=== PATIENT | female | born 1960 | race Caucasian/White ===

== ENCOUNTER 2020-06-26 15:59 | Emergency (ER) | payer OTHER ==
[~2020-06-26] VITALS: Ht 170.2 cm; Wt 76.8 kg
--- NOTE | 2020-06-26 16:18 | PHYS DOC ---
General Adult EDM: Chief Complaint: NEURO SYMPTOMS/DEFICITS HPI: HPI: Patient is a 59-year-old female coming in for blurred vision and right face paintingling. 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 Has completely resolved now. Symptoms started about 5 hours prior to arrival. Patient states she starts with the blurred vision versus like a partial blurring of her visual field. But is unable says 1 side of the other. States only in the right eye. States she been having the symptoms for the past 2 weeks. One time 2 weeks ago the last time about 5 days ago. Patient states those episodes only lasted about 15 to 20 minutes and were not associated any other symptoms. Patient stating that she had the head pain today starting about 30 minutes after the medication started. Patient was instantly seen by her driver courier for an eye exam was routinely scheduled 1 week after the first incident, 1 week ago. Had a normal exam at that time. Patient states she had a dilated exam with pressure checks. (QUIQUE JIN MD) Review of Systems: Review of Systems: All other systems within normal limits except for as noted in the HPI (QUIQUE JIN MD) Physical Exam: PE: Constitutional: Well developed, well nourished, no acute distress, non-toxic appearance. [] HENT: Normocephalic, atraumatic, bilateral external ears normal, nose normal. No temporal tenderness to palpation [] Eyes: PERRLA, conjunctiva normal, no discharge. Extraocular is intact, unremarkable funduscopic exam. Bilateral intraocular pressures less than 20 [] Neck: No rigidity, supple, no stridor. [] Cardiovascular: Regular rate and rhythm, brisk cap refill [] Lungs & Thorax: Non labored symmetric respirations, no tachypnea or respiratory distress [] Abdomen: Soft, nondistended. Skin: Warm, dry, no erythema, no rash. No rash or vesicular lesion on right side of head. [] Back: Unremarkable Extremities: No deformities, range of motion grossly intact, no lower extremity edema [] Neurologic: Alert and oriented X 3, no focal deficits noted. No cranial nerve defects, no sensory defects. [] Psychologic: Affect normal, judgement normal, mood normal. [] (QUIQUE JIN MD) Current Patient Data: Labs: Laboratory Tests Test 06/26/20 16:09 Glucose (Fingerstick) 102 mg/dL (70-99) H (QUIQUE JIN MD) EKG: EKG: Sinus rhythm, heart rate 90 bpm, normal axis, no ST elevation depression, no ectopy, normal intervals. T waves unremarkable. [] (QUIQUE JIN MD) Radiology/Procedures: Radiology/Procedures: CT HEAD/BRAIN WO History: Reason: right eye vision changes / Spl. Instructions: / History: Comparison: None. Technique: Noncontrast CT imaging was performed of the head. Exposure: One or more of the following individualized dose reduction techniques were utilized for this examination: 1. Automated exposure control 2. Adjustment of the mA and/or kV according to patient size 3. Use of iterative reconstruction technique. Findings: No intracranial hemorrhage. No mass effect. No hydrocephalus. Extra-axial spaces are unremarkable. Imaged orbits are unremarkable. Imaged paranasal sinuses and mastoid air cells are clear. No acute calvarial fracture. Impression: 1. No acute intracranial abnormality. [] (QUIQUE JIN MD) Radiology/Procedures: Findings: No intracranial hemorrhage. No mass effect. No hydrocephalus. Extra-axial spaces are unremarkable. Imaged orbits are unremarkable. Imaged paranasal sinuses and mastoid air cells are clear. No acute calvarial fracture. Impression: 1. No acute intracranial abnormality. Electronically signed by: Jaycob Reyes DO (06/26/2020 4:48 PM) [id number] (JOSIANE SHULTZ MD) Heart Score: C/O Chest Pain: No Risk Factors: Risk Factors: DM, Current or recent (<one month) smoker, HTN, HLP, family history of CAD, obesity. Risk Scores: Score 0 - 3: 2.5% MACE over next 6 weeks - Discharge Home Score 4 - 6: 20.3% MACE over next 6 weeks - Admit for Clinical Observation Score 7 - 10: 72.7% MACE over next 6 weeks - Early Invasive Strategies (QUIQUE JIN MD) Course & Med Decision Making: Course & Med Decision Making Pertinent Labs and Imaging studies reviewed. (See chart for details) Patient signed out to Dr. Shultz at shift change pending D-dimer CT angio. [] (QUIQUE JIN MD) Course & Med Decision Making Patient's care was transferred to wi at checkout. EKG and troponin not concerning. CT noted above and not concerning. Laboratory analysis not concerning. No focal neurologic deficits. NIH of 0. On reassessment patient was asymptomatic and felt safe to discharge home. Vital signs not concerning outside of slightly elevated blood pressure. Discussed all findings with patient and advised calling primary care physician f irst thing in the morning to discuss ED visit and set up a follow-up as soon as she can to discuss need for further evaluation, treatment and/or imaging such as MRI. Gave strict return precautions to the ED. Patient grateful, verbalized understanding and agreed with plan of discharge. (JOSIANE SHULTZ MD) Dragon Disclaimer: Dragon Disclaimer: This electronic medical record was generated, in whole or in part, using a voice recognition dictation system. (QUIQUE JIN MD) Departure Departure: Impression: Primary Impression: Blurred vision, bilateral Disposition: 01 DC HOME SELF CARE/HOMELESS Condition: GOOD Referrals: PCP,NO (PCP) Patient Instructions: Eye - Blurred Vision Additional Instructions: Please read the attached information. Your CT scan of the head, laboratory a nalysis and ECG/troponin which looks at your heart were all reassuring today. Your vital signs are notable for mild elevation of blood pressure but otherwise normal. However, this work-up is a snapshot of what is going on today so the best course of action would be to call your primary care physician first thing in the morning to update on your ED visit, symptoms and get a follow-up appointment with them as soon as possible to discuss need for further evaluation, treatment and/or imaging such as MRI. Please come back to the emergency department immediately with any new or concerning symptoms as discussed. QUIQUE JIN MD Jun 26, 2020 16:18 JOSIANE SHULTZ MD Jun 26, 2020 19:11
--- NOTE | 2020-06-26 16:30 | EKG ---
[address] [address] Test Date: 2020-06-26 Test Time: 16:20:52 Pat Name: NITZA BETANCUR Department: Room: Gender: F Receiver Stocker: CHRISTINE : 1960 Requested By: QUIQUE JIN Order Number: [id number] Reading MD: Measurements Intervals [place] Rate: 96 P: 50 MN: 146 QRS: 35 QRSD: 82 T: 42 QT: 346 QTc: 438 Interpretive Statements SINUS RHYTHM NORMAL ECG RI6.02 No previous ECG available for comparison
[2020-06-26 16:40] LABS: BASO # 0.1 x10^3/uL (0.0-0.2); BASO % 1 % (0-3); EOS # 0.1 x10^3/uL (0.0-0.7); EOS % 1 % (0-3); HEMATOCRIT 45.8 % (36.0-47.0); LYMPH # 2.3 x10^3/uL (1.0-4.8); LYMPH % 27 % (24-48); MEAN CORPUSCULAR HEMOGLOBIN 27 pg (25-35); MEAN CORPUSCULAR HGB CONC 33 g/dL (31-37); MEAN CORPUSCULAR VOLUME 83 fL (79-100); MONO # 0.6 x10^3/uL (0.0-1.1); MONO % 7 % (0-9); NEUT # 5.5 x10^3uL (1.8-7.7); NEUT % 64 % (31-73); PLATELET COUNT 369 x10^3/uL (140-400); RED BLOOD COUNT 5.52 x10^6/uL (3.50-5.40); RED CELL DISTRIBUTION WIDTH 13.4 % (11.5-14.5); WHITE BLOOD COUNT 8.6 x10^3/uL (4.0-11.0)
--- NOTE | 2020-06-26 16:51 | RAD ---
CT HEAD/BRAIN WO History: Reason: right eye vision changes / Spl. Instructions: / History: Comparison: None. Technique: Noncontrast CT imaging was performed of the head. Exposure: One or more of the following individualized dose reduction techniques were utilized for thi s examination: 1. Automated exposure control 2. Adjustment of the mA and/or kV according to patient size 3. Use of iterative reconstruction technique. Findings: No intracranial hemorrhage. No mass effect. No hydrocephalus. Extra-axial spaces are unremarkable. Imaged orbits are unremarkable. Imaged paranasal sinuses and mastoid air cells are clear. No acute ca lvarial fracture. Impression: 1. No acute intracranial abnormality. Electronically signed by: Jaycob Reyes DO (06/26/2020 4:48 PM) [id number]
[2020-06-26 16:52] LABS: CALCIUM 9.2 mg/dL (8.5-10.1); CREATININE 0.7 mg/dL (0.6-1.0); GFR 85.6; POTASSIUM 3.9 mmol/L (3.5-5.1)
[2020-06-26 16:59] LABS: C REACTIVE PROTEIN 1.1 mg/L (0-3.3); MAGNESIUM 2.2 mg/dL (1.8-2.4); TOTAL BILIRUBIN 0.2 mg/dL (0.2-1.0); TOTAL PROTEIN 7.9 g/dL (6.4-8.2)
[2020-06-26 17:52] LABS: SEDIMENTATION RATE 5 (0-25)
[2020-06-26 18:00] LABS: BACTERIA,URINE 0 /HPF (0-FEW); BILIRUBIN,URINE NEG (NEG); CLARITY,URINE CLEAR; COLOR,URINE YELLOW; GLUCOSE,URINE NEG (NEG); NITRITE,URINE NEG (NEG); SQUAMOUS EPITHELIAL CELL,UR FEW /LPF; UROBILINOGEN,URINE 0.2 mg/dL (0.2 mg/dL)
[2020-06-26 19:40] VITALS: BP 170/88
== END 2020-06-26 20:00 | disposition home or self-care (01) ==
LOC: ER 15:59
DX: H53.8 Other visual disturbances (principal); R51.9 Headache, unspecified
CPT/HCPCS: 36415; 70450; 80053; 81001; 82947; 83735; 84484; 85025; 85379; 85610; 85651; 86140; 93005; 99285